=== PATIENT | female | born 1940 | race African-American/Black ===

== ENCOUNTER 2021-01-17 15:33 | Emergency (ER) | payer MEDICARE, MEDICAID ==
[2021-01-17] MEDS ORDERED: Glycopyrrolate 0.2 MG/ML SDV IM ONE (15:34)
--- NOTE | 2021-01-17 15:51 | EDM.PDOC ---
ED HPI GENERAL MEDICAL PROBLEM - General Stated Complaint: OUT OF CONTROL PSYCH Time Seen by Provider: 01/17/21 15:35 Source of Information: Reports: Patient, Shelter Records, Police History Limitations: Reports: Combative/Threatening, Uncooperative - History of Present Illness INITIAL COMMENTS - FREE TEXT/NARRATIVE: Patient brought from [place] for medical clearance for admission to inpatient psychiatric treatment. She has been at the [facility] in [place] and apparently can go there again. She has been progressively more and more agitated and aggressive the past several days. Today they gave her Zyprexa prior to leaving in the ambulance. She has been refusing her medications for the past 6 months. She is very agitated, uncooperative and is yelling and swinging her arms. When I question her she yells some incomprehensible sentences and either doesn't understand my questions or doesn't want to answer them. She just ignores them and keeps yelling. When I attempt to examine her she swings loosely at me and pushes me away. Not attacking us but if we get too close, very aggressive. - Related Data Allergies Allergy/AdvReac Type Severity Reaction Status Date / Time PPD test Allergy Cannot Uncoded 01/17/21 22:00 Remember ED ROS GENERAL - Review of Systems Review Of Systems: Unable To Obtain (uncooperative) Reason Not Obtained: patient uncooperative and aggressive ED EXAM, GENERAL - Physical Exam Exam: Not Obtained (hands on part is not performed) Reason Not Obtained: refuses Exam Limited By: Uncooperative General Appearance: Alert, WD/WN, No Apparent Distress Eye Exam: Bilateral Eye: EOMI, Normal Inspection Ears: Normal External Exam Nose: Normal Inspection, No Blood Throat/Mouth: Normal Inspection, Normal Lips, No Airway Compromise Head: Atraumatic, Normocephalic Neck: Full Range of Motion Respiratory/Chest: No Respiratory Distress Back Exam: Full Range of Motion Extremities: Normal Range of Motion Neurological: Alert Psychiatric: Other (agitated and aggressive) Skin Exam: Dry, Intact, Normal Color Course - Re-Assessments/Exams Free Text/Narrative Re-Assessment/Exam: 01/17/21 15:54 We will try to get vitals to confirm they are stable. That should be adequate for clearance to psychiatric treatment. She is obviously alert and not in any obvious physical or medical distress. There is no guardian or [place] staff with patient. 01/17/21 17:25 I discussed case with Zita (of [facility]) and then with Tacho Mccarty NP psych at [facility] in [place]. He has room and accepts patient and would like us to try to get more information from the [place] to send with the patient if possible. He also requests that I place a 24-hour hold on the patient prior to transfer. 01/17/21 20:03 Dorie Erickson called back from [facility] shortly after the acceptance by Tacho Novak and said she is the one that accepts patients for psychiatric treatment. She needs more information first. After a lot of back and forth, she informed us that they won't accept patient until tomorrow. Patient has been yelling at staff much of the 4 hours she has been here. I called [facility] and was informed that they won't accept patients without a negative Covid test. This wasn't possible due to patient unco-operation so, after deliberation of options, Daxa Bernardo CRNA was called in to sedate patient for the Covid test. We discussed this and she called made a couple calls to other anesthesia providers for advice. We then proceeded. Patient had a brief period of being quiet and cooperative and we didn't have to restrain her at all for the IM injections. Ketamine IM was used for sedation. Then the tests were run. Patient was alert, pleasant and cooperative. 01/17/21 20:37 Zita called back to inform me that the [facility] told her to let me know that if we couldn't find any other options they would take her in [place]. Right now we are waiting on the Covid test and then will call [facility] to see if they can take her. Patient is resting quietly now. 01/17/21 21:16 Covid test is negative. I discussed case with Dr. Mojica psych at [facility] who tells me that they don't have the capacity for an aggressive patient. He apologized if they implied that they would take the patient if we could get a negative Covid test. 01/17/21 21:39 I called [facility] and after a lengthy questionairre was asked to fax them all of the patient information for them to review and they will get back to us. I asked about how long this would be and was told that there are 8 patients ahead of us and it would be a few hours before we could get an answer either yes or no. I called Zita back for placement in [place] and she will talk with Tacho Mccarty and call me back again. 01/17/21 21:50 Zita called me back that we can send patient to meet with her for a [id number] visit for her to approve, then should be able to go to [facility]. She wants to meet at the [facility] ER parking lot. I told her this is new and I haven't ever had this type of situation for a transfer. Zita said this is a new requirement they are trying out for getting patients into the [facility]. 01/17/21 22:17 Zita says we won't need the 24-hour hold now. Patient is stable. Departure - Departure Time of Disposition: 22:08 Disposition: DC/Tfer to Psych Hosp/Unit 65 Condition: Undetermined Clinical Impression: Agitation Schizophrenia Qualifiers: Schizophrenia type: unspecified Qualified Code(s): F20.9 - Schizophrenia, unspecified - Discharge Information
[2021-01-17] MEDS ORDERED: Ketamine 200 MG/20 ML MDV ONE (19:24)
[2021-01-17 20:56] LABS: POTASSIUM,POC 4.2 mmol/L (3.5-4.5); SODIUM,POC 145 mmol/L (138-146)
[2021-01-17 20:57] LABS: ESTIMATED GFR, POC > 60 mL/min
== END 2021-01-17 22:36 ==
LOC: KA.ED 15:33
DX: F20.9 Schizophrenia, unspecified (principal); R45.1 Restlessness and agitation
CPT/HCPCS: 36415; 80047; 85025; 96372; 99284; 99285; J3490; U0002